=== PATIENT | female | born 1970 | race Caucasian/White ===

== ENCOUNTER 2018-10-01 04:13 | Emergency (ER) | payer OTHER ==
[2018-10-01 05:21] LABS: ABSOLUTE BASOPHILS # (AUTO) 0.1 10^3/uL (0.0-0.2); ABSOLUTE EOSINOPHILS # (AUTO) 0.1 10^3/uL (0.0-0.6); ABSOLUTE LYMPHOCYTES (AUTO) 1.4 10^3/uL (0.5-4.7); ABSOLUTE MONOCYTES (AUTO) 0.8 10^3/uL (0.1-1.4); ABSOLUTE NEUT (AUTO) 12.6 10^3/uL (1.7-8.2); BASOPHILS % (AUTO) 0.4 % (0-2); EOSINOPHILS % (AUTO) 0.7 % (0-6); HEMATOCRIT 39.1 % (36.0-47.0); HEMOGLOBIN 13.6 g/dL (12.0-15.5); LYMPHOCYTES % (AUTO) 9.5 % (13-45); MEAN CORPUSCULAR HEMOGLOBIN 31.7 pg (27.0-33.4); MEAN CORPUSCULAR HGB CONC 34.6 g/dL (32.0-36.0); MEAN CORPUSCULAR VOLUME 92 fl (80-97); MONOCYTES % (AUTO) 5.2 % (3-13); PLATELET COUNT 377 10^3/uL (150-450); RED BLOOD COUNT 4.27 10^6/uL (3.72-5.28); RED CELL DISTRIBUTION WIDTH 13.6 % (11.5-14.0); SEGMENTED NEUTROPHILS % (AUTO) 84.2 % (42-78); TOTAL CELLS COUNTED % (AUTO) 100 %; WHITE BLOOD COUNT 14.9 10^3/uL (4.0-10.5)
[2018-10-01 05:24] LABS: APPEARANCE,URINE CLEAR; BILIRUBIN,URINE NEGATIVE (NEGATIVE); COLOR,URINE STRAW; GLUCOSE, URINE NEGATIVE (NEGATIVE); KETONES,URINE NEGATIVE (NEGATIVE); LEUKOCYTE ESTERASE,URINE NEGATIVE (NEGATIVE); NITRITE,URINE NEGATIVE (NEGATIVE); PROTEIN,URINE NEGATIVE (NEGATIVE); URINE SPECIFIC GRAVITY 1.003; UROBILINOGEN,URINE NEGATIVE mg/dL (<2.0)
[2018-10-01 05:44] LABS: A TYPE INFLUENZA AG NEGATIVE (NEGATIVE); B INFLUENZA AG NEGATIVE (NEGATIVE)
[2018-10-01] MEDS ORDERED: ACETAMINOPHEN 325 MG TABLET PO ONE (05:46)
--- NOTE | 2018-10-01 05:48 | ER Document Report ---
ED General - General Chief Complaint: Fever Stated Complaint: FEVER Time Seen by Provider: 10/01/18 04:44 Notes: Patient is a 48-year-old female presents to the emergency department chief complaint fever. Patient states around midnight she noticed that she was hot to touch so she took 2 extra strength Tylenol. Patient states she was able to go to sleep but then woke up around 4 AM and felt warm to touch. Patient states she took her temperature and it was 101.6 Fahrenheit orally. Patient states she did not take any medications at that time she does presents to the emergency. Patient states on 09/17/2018 she had been abdominoplasty and a ventral hernia repair with a plastic surgeon in [place]. States she was at his office yesterday for drain removal. States she has noticed no drainage from her wounds, increased redness, increased pain. Patient denies cough, congestion, vomiting, diarrhea, abdominal pain, shortness of breath or chest pain. TRAVEL OUTSIDE OF THE [place] IN LAST 30 DAYS: No Past Medical History - General Information source: Patient - Social History Smoking Status: Unknown if Ever Smoked Family History: Reviewed & Not Pertinent Review of Systems - Review of Systems Constitutional: See HPI EENT: No symptoms reported Cardiovascular: No symptoms reported Respiratory: No symptoms reported Gastrointestinal: See HPI Genitourinary: No symptoms reported Female Genitourinary: No symptoms reported Musculoskeletal: No symptoms reported Skin: See HPI Hematologic/Lymphatic: No symptoms reported Neurological/Psychological: No symptoms reported Physical Exam - Vital signs Vitals: Temp Pulse Resp BP Pulse Ox 99.2 F 110 H 14 118/63 99 10/01/18 04:13 10/01/18 04:13 10/01/18 04:13 10/01/18 04:13 10/01/18 04:13 - Notes Notes: GENERAL: Alert, interacts well. No acute distress. HEAD: Normocephalic, atraumatic. EYES: Pupils equal, round, and reactive to light. Extraocular movements intact. ENT: Oral mucosa moist, tongue midline. NECK: Full range of motion. Supple. Trachea midline. LUNGS: Clear to auscultation bilaterally, no wheezes, rales, or rhonchi. No respiratory distress. HEART: Regular rate and rhythm. No murmur ABDOMEN: Soft, non-tender. Non-distended. Bowel sounds present in all 4 quadrants. Large scar horizontal from the lower right side of abdomen all the way over to the left side of abdomen. It appears well-healed at this time no wound dehiscence noted, no discharge, no warmth, no erythema. Scar around patient's umbilicus also no erythema, no warmth, no discharge. EXTREMITIES: Moves all 4 extremities spontaneously. No edema, normal radial and dorsalis pedis pulses bilaterally. No cyanosis. Circular small wounds noted right and left proximal anterior femurs, patient states this is where her drains were removed. Sites have no erythema, discharge, warmth. BACK: no cervical, thoracic, lumbar midline tenderness. No saddle anesthesia, normal distal neurovascular exam. NEUROLOGICAL: Alert and oriented x3. Normal speech. cranial nerves II through XII grossly intact PSYCH: Normal affect, normal mood. SKIN: Warm, dry, normal turgor. Course - Re-evaluation Re-evalutation: 10/01/18 05:[address] Ronaldo Vasquez plastic surgeon in [place] due to patient recently having an abdominoplasty procedure with him on 09/17/2018. Currently awaiting return phone call. 10/01/18 05:[address] Vasquez who requests one dose of ceftriaxone in the emergency room and for the patient to be discharged home with amoxicillin. States he would like to see the patient in his office on . Patient's labs do show leukocytosis of 14.9, flu is negative at this time. Discussed treatment plan with patient at bedside who is agreeable. Discussed the need to follow-up with plastic surgeon on . Patient is currently afebrile at this time, non-tachycardic, in no obvious distress upon discharge. Patient is stable. - Vital Signs Vital signs: Temp Pulse Resp BP Pulse Ox 99.2 F 110 H 14 118/63 99 10/01/18 04:13 10/01/18 04:13 10/01/18 04:13 10/01/18 04:13 10/01/18 04:13 - Laboratory Result Diagrams: 10/01/18 05:10 10/01/18 05:10 Laboratory results interpreted by me: 10/01/18 10/01/18 10/01/18 05:10 05:10 05:10 WBC 14.9 H Seg Neutrophils % 84.2 H Lymphocytes % 9.5 L Absolute Neutrophils 12.6 H Sodium 136.6 L Glucose 124 H Urine Blood SMALL H Discharge - Discharge Clinical Impression: Fever Qualifiers: Fever type: unspecified Qualified Code(s): R50.9 - Fever, unspecified Condition: Stable Disposition: HOME, SELF-CARE Instructions: Fever (OM) Additional Instructions: As we discussed you have been seen and treated in the emergency department for a fever. I have spoken to your plastic surgeon who is requesting I send you home on antibiotics. Please take them as prescribed. Your influenza test came back negative. Please follow-up with your plastic surgeon this coming 10/03/2018. Please return to the emergency room for any other concerning symptoms. Prescriptions: Amoxicillin Trihydrate [Amoxil 500 mg Capsule] 500 mg PO TID #30 cap
[2018-10-01 05:49] LABS: ALANINE AMINOTRANSFERASE 19 U/L (9-52); ALBUMIN 4.1 g/dL (3.5-5.0); ALKALINE PHOSPHATASE 74 U/L (38-126); ANION GAP 8 (5-19); ASPARTATE AMINO TRANSFERASE 19 U/L (14-36); BILIRUBIN,DIRECT 0.2 mg/dL (0.0-0.4); BILIRUBIN,TOTAL 0.5 mg/dL (0.2-1.3); BLOOD UREA NITROGEN 10 mg/dL (7-20); CALCIUM 9.8 mg/dL (8.4-10.2); CARBON DIOXIDE 30 mmol/L (22-30); CHLORIDE 99 mmol/L (98-107); GLUCOSE 124 mg/dL (75-110); POTASSIUM 4.6 mmol/L (3.6-5.0); SODIUM 136.6 mmol/L (137-145); TOTAL PROTEIN 7.4 g/dL (6.3-8.2)
[2018-10-01] MEDS ORDERED: LIDOCAINE 1% INJ-PF (10 MG/ML) 30 ML SDV INJ ONE (06:07)
[2018-10-01] MEDS ORDERED: CEFTRIAXONE INJ 1000 MG VIAL IM ONE (06:07)
[2018-10-01] MEDS ORDERED: ONDANSETRON ODT 4 MG TAB (6 TAB/ER DISP) PO PRN (06:09)
[2018-10-01] MEDS ORDERED: CEFTRIAXONE 1 GM/D5W RTU 1 GM/50 ML RTUPB IV ONE (06:10)
[2018-10-01 06:25] VITALS: BP 112/52
== END 2018-10-01 06:26 | disposition home or self-care (01) ==
LOC: ER 04:13
DX: R50.9 Fever, unspecified (principal)
CPT/HCPCS: 99283; 96372; 36415; 85025; 80053; 81001; 87804; J3490; J0696

== ENCOUNTER 2018-10-07 07:25 | Emergency (ER) | payer OTHER ==
--- NOTE | 2018-10-07 09:22 | ER Document Report ---
ED General - General Mode of Arrival: Ambulatory Information source: Patient TRAVEL OUTSIDE OF THE [place] IN LAST 30 DAYS: No - HPI Onset: Other - 2 days ago Onset/Duration: Persistent Quality of pain: Other - sensitive Severity: Mild Pain Level: 2 Associated symptoms: None Exacerbated by: Movement Relieved by: Denies Similar symptoms previously: Yes Recently seen / treated by doctor: Yes <JUDI LAY - Last Filed: 10/07/18 20:46> <MINNA MENDOZA - Last Filed: 10/19/18 08:40> - General Chief Complaint: Post Surgical Pain Stated Complaint: ABDOMINAL PAIN Time Seen by Provider: 10/07/18 07:51 Notes: Patient presents emergency department with complaints of right sided incisional pain. Patient reports she had hernia repair with abdominoplasty on September 17. She had bilateral drains placed. The first drain was removed 1 week after the procedure the second drain was removed a week after that. On September 30 patient presented to the emergency department with pain. She had a fever at that time they did put her on antibiotics. She is still on amoxicillin. She did follow-up with her surgeon Dr. Reid in [place]. Patient reports she is feeling better but two days ago she felt the area is more sensitive and when she stands up she feels a hard knot. The sensitivity feeling increased this am. Laying down she is okay but moving around she feels these sharp pains. Denies fever. She was offered Tylenol and declined for pain. Denies fever vomiting diarrhea. Denies trauma. (JUDI LAY) - Related Data Allergies/Adverse Reactions: No Known Allergies Allergy (Verified 10/07/18 07:28) Past Medical History - General Information source: Patient - Social History Smoking Status: Never Smoker Chew tobacco use (# tins/day): No Frequency of alcohol use: None Drug Abuse: None Family History: Reviewed & Not Pertinent Patient has suicidal ideation: No Patient has homicidal ideation: No Renal/ Medical History: Denies: Hx Peritoneal Dialysis Past Surgical History: Reports: Hx Abdominal Surgery - abdominoplasty and ventral hernia repair, Hx Cholecystectomy, Hx Gynecologic Surgery - uterine sling <JUDI LAY - Last Filed: 10/07/18 20:46> Review of Systems <JUDI LAY - Last Filed: 10/07/18 20:46> - Review of Systems Notes: Review HPI for review of systems., All other systems negative (JUDI LAY) Physical Exam - Abdominal Inspection: Normal Tenderness: Tender Adult front & back diagram: 1 - c/o ttp, reports knot when she stands up <JUDI LAY - Last Filed: 10/07/18 20:46> - Vital signs Vitals: Temp Pulse Resp BP Pulse Ox 98.1 F 92 16 137/78 H 95 10/07/18 07:33 10/07/18 07:33 10/07/18 07:33 10/07/18 07:33 10/07/18 07:33 - Notes Notes: PHYSICAL EXAMINATION: GENERAL: Well-appearing and in no acute distress HEAD: Atraumatic, normocephalic. EYES: Pupils equal round extraocular movements intact, sclera anicteric, conjunctiva are normal. ENT: nares patent, Moist mucous membranes. NECK: Normal range of motion, supple without lymphadenopathy LUNGS: CTAB and equal. No wheezes rales or rhonchi. HEART: Regular rate and rhythm without murmurs ABDOMEN: Soft, some right lower near drainage surgical site tenderness. No guarding, no rebound EXTREMITIES: Normal range of motion, no pitting edema. No cyanosis. NEUROLOGICAL: Cranial nerves grossly intact. Normal sensory/motor exams. PSYCH: Normal mood, normal affect. SKIN: Warm, Dry, normal turgor, surgical site, drainage sites benign, no warmth, no discharge, no erythema (JUDI LAY) Course - Laboratory Result Diagrams: 10/07/18 10:25 10/07/18 10:25 - Diagnostic Test Radiology reviewed: Image reviewed, Reports reviewed - EXAM DESCRIPTION: U/S ABDOMEN LTD W/DOPPLER COMPLETED DATE/TIME: 10/07/2018 9:15 am REASON FOR STUDY: abd pain, recent hernia repair COMPARISON: None. TECHNIQUE: Dynamic and static grayscale images acquired of the abdomen and recorded on PACS. Additional selected color Doppler and spectral images recorded. LIMITATIONS: None. FINDINGS: Targeted ultrasound of the superficial low abdomen reveals a hypoechoic fluid collection underlying a transverse abdominoplasty incision, which is difficult to fully measure due to length although in cross-section measures at least 8.2 x 3.8 cm. There appear to be substantial fluid components in both the right lower quadrant and left lower quadrant. IMPRESSION: Targeted ultrasound of the superficial low abdomen reveals a hypoechoic fluid collection underlying a transverse abdominoplasty incision, which is difficult to fully measure due to length although in cross-section measures at least 8.2 x 3.8 cm. There appear to be substantial fluid components in both the right lower q uadrant and left lower quadrant. Differential considerations include hematoma, seroma, or abscess. The presence of infection cannot be evaluated by ultrasound. Recommend CT to further evaluate. EXAM DESCRIPTION: CT ABD/PELVIS WITH IV ONLY COMPLETED DATE/TIME: 10/07/2018 11:34 am REASON FOR STUDY: abd pain, ? abscess COMPARISON: None. TECHNIQUE: CT scan of the abdomen and pelvis performed using helical scanning technique with dynamic intravenous contrast injection. No oral contrast. Images reviewed with lung, soft tissue, and bone windows. Reconstructed coronal and sagittal MPR images reviewed. Delayed images for evaluation of the urinary system also acquired. All images stored on PACS. All CT scanners at this facility use dose modulation, iterative reconstruction, and/or weight based dosing when appropriate to reduce radiation dose to as low as reasonably achievable (ALARA). [facility]: Dose Right [facility]: CareDose [facility]: Dose Right [facility]: Teradose 4D [facility]: [employer] CONTRAST TYPE AND DOSE: contrast/concentration: Isovue 350.00 mg/ml; Total Contrast Delivered: 99.0 ml; Total Saline Delivered: 56.0 ml RENAL FUNCTION: BUN 10 creatinine 0.6 RADIATION DOSE: CT Rad equipment meets quality standard of care and radiation dose reduction techniques were employed. CTDIvol: 20.4 - 21.0 mGy. DLP: 2273 mGy-cm.. LIMITATIONS: None. FINDINGS: LOWER CHEST: No significant findings. No nodules or infiltrates. LIVER: Normal size. No masses. No dilated ducts. SPLEEN: Normal size. No focal lesions. PANCREAS: No masses. No significant calcifications. No adjacent inflammation or peripancreatic fluid collections. Pancreatic duct not dilated. GALLBLADDER: Surgically absent. ADRENAL GLANDS: No significant masses or asymmetry. RIGHT KIDNEY AND URETER: No solid masses. No significant calcifications. No hydronephrosis or hydroureter. LEFT KIDNEY AND URETER: No solid masses. No significant calcifications. No hydronephrosis or hydroureter. AORTA AND VESSELS: No aneurysm. No dissection. Renal arteries, SMA, celiac without stenosis. RETROPERITONEUM: No retroperit phillip adenopathy, hemorrhage or masses. BOWEL AND PERITONEAL CAVITY: No masses or inflammatory changes. No free fluid or peritoneal masses. APPENDIX: Normal. PELVIS: No mass. No free fluid. Normal bladder. ABDOMINAL WALL: There is a large fluid collection in the subcutaneous fat that extends across the width of the lower abdomen. This has a maximum depth of 43 mm. There are bubbles of air within this fluid collection. BONES: No significant or acute findings. OTHER: No other significant finding. IMPRESSION: Abdominal wall fluid collection as described. Bubbles of air are suggestive of an abscess. TECHNICAL DOCUMENTATION: JOB ID: [id number] Quality ID # [id number]: Final reports with docum entation of one or more dose reduction techniques (e.g., Automated exposure control, adjustment of the mA and/or kV according to patient size, use of iterative reconstruction technique) 2010 [employer] <JUDI LAY - Last Filed: 10/07/18 20:46> - Laboratory Result Diagrams: 10/07/18 10:25 10/07/18 10:25 <MINNA MENDOZA - Last Filed: 10/19/18 08:40> - Re-evaluation Re-evalutation: 10/07/18 10:04 ultrasound is inconclusive patient will need to have a CT. Patient instructed on plan of care and verbalized understanding. 10/07/18 12:53 CT shows abdominal wall fluid collection consulted Dr. Mendoza he advised surgical consult. Pt informed of abscess, offered to call surgeon that did original surgery or dr burns, patient is okay with me contacting Dr. Burns here. Dr. Burns called message left with ICU nurse. Dr burns returned call, will review CT 10/07/18 13:40 dr burns on phone, reports the area does need to be drained and for patient care she should follow up with dr puga the surgeon that did the original surgery. pt vss, no fever, pt is comfortable at this time. Updated on plan of care to contact dr puga. 10/07/18 15:00 Dr. Brennan from [facility] contacted return call he accepted patient patient be transferred to [facility] and go straight to the OR. Patient was informed. Dictation of this chart was performed using voice recognition software; therefore, there may be some unintended grammatical errors. 10/07/18 16:00 patient resting, no c/o, VSS. waiting for transport. (JUDI LAY) - Vital Signs Vital signs: Temp Pulse Resp BP Pulse Ox 99.2 F 97 16 139/57 H 95 10/07/18 16:22 10/07/18 16:22 10/07/18 08:11 10/07/18 16:22 10/07/18 16:22 - Laboratory Laboratory results interpreted by me: 10/07/18 10/07/18 10:25 10:25 Hct 35.6 L Carbon Dioxide 31 H - Consults fina Reason for consultation: 10/07/18 12:32 Dr. Burns called for consult.he is busy with central line, requested nurse to that she has a history that she want to do it or if she wants she is that she can do it herself she is might need some more on her hands are we able to do more urinary turn think there is no fever or anything like that we found out why she was so short of breath and she is not complaining any symptoms that she did not complain to me of any symptoms like pain or anything like that she just has the pain of the breast and everything is that she says she has a headache but but she has a history of migraine that just give her the Percocet and so I will check before to know how we would we would be able to get a clean catch himself But we do not need a year and then (JUDI LAY) Discharge <JUDI LAY - Last Filed: 10/07/18 20:46> <MINNA MENDOZA - Last Filed: 10/19/18 08:40> - Discharge Clinical Impression: post op abdominal pain, Abdominal abscess Condition: Stable Disposition: [facility] Cosign for MLP Consult
--- NOTE | 2018-10-07 09:41 | RADIOLOGY REPORT (SQ) ---
EXAM DESCRIPTION: U/S ABDOMEN LTD W/DOPPLER COMPLETED DATE/TIME: 10/07/2018 9:15 am REASON FOR STUDY: abd pain, recent hernia repair COMPARISON: None. TECHNIQUE: Dynamic and static grayscale images acquired of the abdomen and recorded on PACS. Nataliia ernandez selected color Doppler and spectral images recorded. LIMITATIONS: None. FINDINGS: Targeted ultrasound of the superficial low abdomen reveals a hypoechoic fluid collection u nderlying a transverse abdominoplasty incision, which is difficult to fully measure due to length alt james in cross-section measures at least 8.2 x 3.8 cm. There appear to be substantial fluid componen ts in both the right lower quadrant and left lower quadrant. IMPRESSION: Targeted ultrasound of the superficial low abdomen reveals a hypoechoic fluid collection underlying a transverse abdominoplasty incision, which is difficult to fully measure due to length a lthough in cross-section measures at least 8.2 x 3.8 cm. There appear to be substantial fluid compone nts in both the right lower quadrant and left lower quadrant. Differential considerations include he matoma, seroma, or abscess. The presence of infection cannot be evaluated by ultrasound. Recommend CT to further evaluate. TECHNICAL DOCUMENTATION: JOB ID: [id number] [email or web address]- All Rights Reserved Reading location - IP/workstation name: [email or web address]
[2018-10-07 10:37] LABS: ABSOLUTE EOSINOPHILS # (AUTO) 0.2 10^3/uL (0.0-0.6); ABSOLUTE LYMPHOCYTES (AUTO) 1.9 10^3/uL (0.5-4.7); ABSOLUTE MONOCYTES (AUTO) 0.6 10^3/uL (0.1-1.4); ABSOLUTE NEUT (AUTO) 4.9 10^3/uL (1.7-8.2); BASOPHILS % (AUTO) 0.5 % (0-2); EOSINOPHILS % (AUTO) 2.7 % (0-6); HEMATOCRIT 35.6 % (36.0-47.0); HEMOGLOBIN 12.5 g/dL (12.0-15.5); LYMPHOCYTES % (AUTO) 24.9 % (13-45); MEAN CORPUSCULAR HEMOGLOBIN 32.1 pg (27.0-33.4); MEAN CORPUSCULAR VOLUME 92 fl (80-97); MONOCYTES % (AUTO) 7.3 % (3-13); PLATELET COUNT 415 10^3/uL (150-450); RED BLOOD COUNT 3.89 10^6/uL (3.72-5.28); RED CELL DISTRIBUTION WIDTH 13.8 % (11.5-14.0); SEGMENTED NEUTROPHILS % (AUTO) 64.6 % (42-78); TOTAL CELLS COUNTED % (AUTO) 100 %; WHITE BLOOD COUNT 7.6 10^3/uL (4.0-10.5)
[2018-10-07 11:10] LABS: ALANINE AMINOTRANSFERASE 18 U/L (9-52); ALBUMIN 3.5 g/dL (3.5-5.0); ALKALINE PHOSPHATASE 73 U/L (38-126); ANION GAP 10 (5-19); ASPARTATE AMINO TRANSFERASE 17 U/L (14-36); BILIRUBIN,DIRECT 0.2 mg/dL (0.0-0.4); BILIRUBIN,TOTAL 0.4 mg/dL (0.2-1.3); BLOOD UREA NITROGEN 10 mg/dL (7-20); CALCIUM 9.2 mg/dL (8.4-10.2); CARBON DIOXIDE 31 mmol/L (22-30); CHLORIDE 101 mmol/L (98-107); GLUCOSE 109 mg/dL (75-110); POTASSIUM 4.1 mmol/L (3.6-5.0); SODIUM 141.7 mmol/L (137-145); TOTAL PROTEIN 6.6 g/dL (6.3-8.2)
--- NOTE | 2018-10-07 11:57 | RADIOLOGY REPORT (SQ) ---
EXAM DESCRIPTION: CT ABD/PELVIS WITH IV ONLY COMPLETED DATE/TIME: 10/07/2018 11:34 am REASON FOR STUDY: abd pain, ? abscess COMPARISON: None. TECHNIQUE: CT scan of the abdomen and pelvis performed using helical scanning technique with dynamic intravenous contrast injection. No oral contrast. Images reviewed with lung, soft tissue, and bone windows. Reconstructed coronal and sagittal MPR images reviewed. Delayed images for evaluation of the urinary system also acquired. All images stored on PACS. All CT scanners at this facility use dose modulation, iterative reconstruction, and/or weight based d osing when appropriate to reduce radiation dose to as low as reasonably achievable (ALARA). [facility]: Dose Right [facility]: CareDose [facility]: Dose Right [facility]: Teradose 4D [facility]: [employer] CONTRAST TYPE AND DOSE: contrast/concentration: Isovue 350.00 mg/ml; Total Contrast Delivered: 99.0 ml; Total Saline Delivered: 56.0 ml RENAL FUNCTION: BUN 10 creatinine 0.6 RADIATION DOSE: CT Rad equipment meets quality standard of care and radiation dose reduction techniq ues were employed. CTDIvol: 20.4 - 21.0 mGy. DLP: 2273 mGy-cm.. LIMITATIONS: None. FINDINGS: LOWER CHEST: No significant findings. No nodules or infiltrates. LIVER: Normal size. No masses. No dilated ducts. SPLEEN: Normal size. No focal lesions. PANCREAS: No masses. No significant calcifications. No adjacent inflammation or peripancreatic fluid collections. Pancreatic duct not dilated. GALLBLADDER: Surgically absent. ADRENAL GLANDS: No significant masses or asymmetry. RIGHT KIDNEY AND URETER: No solid masses. No significant calcifications. No hydronephrosis or hyd roureter. LEFT KIDNEY AND URETER: No solid masses. No significant calcifications. No hydronephrosis or hydr oureter. AORTA AND VESSELS: No aneurysm. No dissection. Renal arteries, SMA, celiac without stenosis. RETROPERITONEUM: No retroperitoneal adenopathy, hemorrhage or masses. BOWEL AND PERITONEAL CAVITY: No masses or inflammatory changes. No free fluid or peritoneal masses. APPENDIX: Normal. PELVIS: No mass. No free fluid. Normal bladder. ABDOMINAL WALL: There is a large fluid collection in the subcutaneous fat that extends across the wid th of the lower abdomen. This has a maximum depth of 43 mm. There are bubbles of air within this fl uid collection. BONES: No significant or acute findings. OTHER: No other significant finding. IMPRESSION: Abdominal wall fluid collection as described. Bubbles of air are suggestive of an absce ss. TECHNICAL DOCUMENTATION: JOB ID: [id number] Quality ID # [id number]: Final reports with documentation of one or more dose reduction techniques (e.g., Au tomated exposure control, adjustment of the mA and/or kV according to patient size, use of iterative reconstruction technique) 2010 [employer]- All Rights Reserved Reading location - IP/workstation name: [email or web address]
[2018-10-07] MEDS ORDERED: AMPICILLIN SOD/SULBACTAM 1.5 GM VIAL IV ONE (12:48)
[2018-10-07] MEDS ORDERED: NORMAL SALINE 1000 ML 1,000 ML IV SCH (13:00)
[2018-10-07 16:26] VITALS: BP 139/57
== END 2018-10-07 16:36 | disposition short-term general hospital (02) ==
LOC: ER 07:25
DX: L02.211 Cutaneous abscess of abdominal wall (principal); G89.18 Other acute postprocedural pain; R10.9 Unspecified abdominal pain
CPT/HCPCS: 99285; 96361; 96365; 36415; 87040; 85025; 80053; 76705; 93976; 74177; J0295; J7030